=== PATIENT | female | born 1985 | race Caucasian/White ===

== ENCOUNTER → 2016-11-22 | Outpatient (CLI) | payer OTHER | END | disposition home or self-care (01) | LOC: EDBD → LABWHC1 16:26 | PROVIDERS: ATTEND Family Medicine | DX: E03.9 Hypothyroidism, unspecified (principal) | CPT/HCPCS: 36415; 84439; 84443 ==

== ENCOUNTER → 2016-12-13 | Outpatient (CLI) | payer BC, OTHER ==
--- NOTE | 2016-12-13 08:51 | US ---
EXAMINATION TYPE: US pelvic complete DATE OF EXAM: 12/13/2016 7:22 AM COMPARISON: 08/24/2014 CLINICAL HISTORY: 31-year-old female premenopausal, metrorrhagia N92.4 irregular menses, ablation in 2012 TECHNIQUE: Transabdominal (TA) sonographic images of the pelvis were obtained. FINDINGS: Uterus: Anteverted measuring 9.2 x 5.8 x 4.5 cm. Myometrium appears slightly heterogeneous. Endometrial Stripe: 0.3 cm, uniform and thin. No abnormal fluid collection seen along the uterine cav ity. Right Ovary: 3.7 x 2.3 x 1.9 cm for a volume of 8.5 mL. Left Ovary: 4.1 x 2.6 x 2.5 cm for a volume of 14.0 mL. There is trace cul-de-sac free fluid. No evidence of adnexal abnormality. IMPRESSION: 1. No sonographic evidence for hematometra on transabdominal scanning. Endometrial stripe measures 3 mm. 2. Trace cul-de-sac free fluid likely physiologic.
== END | disposition home or self-care (01) ==
LOC: EDBD → RADUSMAIN 06:58
PROVIDERS: ATTEND Obstetrics & Gynecology
DX: N92.4 Excessive bleeding in the premenopausal period (principal)
CPT/HCPCS: 76856

== ENCOUNTER 2016-12-29 13:32 | Emergency (ER) | payer BC, OTHER ==
[2016-12-29] MEDS ORDERED: RX INFO: IV CONTRAST WAS GIVEN 1 EACH MISC MISCELLANE PRN (13:52)
[2016-12-29] MEDS ORDERED: SODIUM CHLORIDE 0.9% 1,000 ML IV STA ×2 (13:52)
[2016-12-29] MEDS ORDERED: PANTOPRAZOLE 40 MG/10 ML VIAL IVP STA (13:52)
--- NOTE | 2016-12-29 14:02 | ED ---
Abdominal Pain HPI - General Chief Complaint: Abdominal Pain Stated Complaint: Abd Pain Time Seen by Provider: 12/29/16 13:44 Source: patient Mode of arrival: ambulatory Limitations: no limitations - History of Present Illness Initial Comments: This 31-year-old white female presents with a complaint of some abdominal pain. She relates that she had a Isaias fundoplication 2 years ago and was doing well for the following year. Approximately one year ago her symptoms started. She has had primarily midepigastric abdominal pain, fatigue, fainting episodes, and diarrhea for this past year. Her doctor apparently diagnosed her with dumping syndrome one year ago. She relates that her symptoms have been worse over the past one month particularly worse over the past one week. She states that she belches frequently and gets a foamy sensation in her throat. She also was diagnosed with gastroenteritis 1 week ago. She states that her stomach bulges out when she has the pain. It is much worse with any food intake and states that she has lost approximately 10 pounds in the past 2 weeks. She has an appointment to follow-up with Dr. West from gastroenterology on 01/15/2017. She's had previous cholecystectomy and appendectomy in Isaias fundoplication surgeries on her abdomen. She denies any other complaints or modifying factors. She denies any fevers or chills. No nausea vomiting. She does relate some urinary frequency over the last 1 day. - Related Data Home Medications Medication Instructions Recorded Confirmed Levothyroxine Sodium [Synthroid] 175 mcg PO DAILY 12/29/16 12/29/16 Multivitamins, Thera [Multivitamin] 1 tab PO DAILY 12/29/16 12/29/16 rOPINIRole HCL [Requip] 1 mg PO HS 12/29/16 12/29/16 Previous Rx's Medication Instructions Recorded Acetaminophen-Codeine 300-30mg 1 tab PO Q6H PRN #30 tablet 12/29/16 [Tylenol w/codeine #3] Ciprofloxacin HCl [Cipro] 500 mg PO Q12HR #20 tablet 12/29/16 Fluconazole [Diflucan] 150 mg PO ONCE #2 tab 12/29/16 metroNIDAZOLE [Flagyl] 500 mg PO BID #20 tab 12/29/16 Allergies Allergy/AdvReac Type Severity Reaction Status Date / Time hydrocodone bitartrate Allergy Anaphylaxis Verified 02/24/17 14:24 [From Vicodin] Review of Systems ROS Statement: Those systems with pertinent positive or pertinent negative responses have been documented in the HPI. ROS Other: All systems not noted in ROS Statement are negative. Past Medical History Past Medical History: GERD/Reflux, Pneumonia, Thyroid Disorder Additional Past Medical History / Comment(s): SEVERE REFLUX, AFTER LAP JOHN 2014. HYPOGLYCEMIC. SCOLIOSIS. PNEUMONIA 01/2015. BLOATING, DIARRHEA, EXCESS GAS W/ FOOD INTAKE FOR 8 MO EST. History of Any Multi-Drug Resistant Organisms: MRSA Date of last positivie culture/infection: 08/2015 MDRO Source:: BOILS ON SKIN Past Surgical History: Appendectomy, Section, Cholecystectomy, Tonsillectomy, Tubal Ligation, Uterine Ablation Additional Past Surgical History / Comment(s): COLONOSCOPY. LAP JOHN FUNDOPLASTY 02/2015. D & C Past Anesthesia/Blood Transfusion Reactions: No Reported Reaction Past Psychological History: No Psychological Hx Reported Smoking Status: Former smoker Past Alcohol Use History: Rare Additional Past Alcohol Use History / Comment(s): SMOKED 15 YRS, 1/2 PPD UNTIL . Past Drug Use History: None Reported - Past Family History Sister(s) Family Medical History: Cancer General Exam - General Exam Comments Initial Comments: GENERAL: The patient is well nourished and well hydrated. VITAL SIGNS: Heart rate, blood pressure, respiratory rate reviewed as recorded in nurse's notes. EYES: Pupils are round and reactive. Extraocular movements are intact. No conjunctival / lid redness or swelling. ENT: No external evidence of injury, swelling, or ecchymosis. Airway is patent. Throat is clear. NECK: Nontender. No swelling or evidence of injury. No subcutaneous emphysema. Trachea is midline. No thyroid mass. HEART: Regular rate and rhythm. Good peripheral pulses. LUNGS/CHEST: Breath sounds clear and equal bilaterally. No rales, rhonchi, or wheezes. No ecchymosis, subcutaneous emphysema, or tenderness. ABDOMEN: There is some mild tenderness present in the midepigastric region and right upper quadrant. No palpable masses or organomegaly. No peritoneal signs. No abdominal wall swelling or ecchymosis. EXTREMITIES: No extremity tenderness. Normal muscle tone and function. No thoracolumbar tenderness. NEUROLOGIC: Sensation is grossly intact. Cranial nerve exam reveals face is symmetrical, tongue is midline, speech is clear. SKIN: No abrasions or ecchymosis is noted. No induration or masses noted. PSYCHIATRIC: Alert and oriented. Appropriate behavior and judgment. Limitations: no limitations Course Vital Signs 12/29/16 12/29/16 12/29/16 13:34 14:18 15:22 Temperature 98.0 F 99.1 F Pulse Rate 108 H 82 81 Respiratory 20 16 16 Rate Blood Pressure 131/74 123/73 118/66 O2 Sat by Pulse 99 96 99 Oximetry Medical Decision Making - Medical Decision Making The patient was seen and examined. All diagnostics were reviewed. She refuses any pain medications. She is hydrated. The laboratory came back fairly unremarkable but the urine does show evidence of urinary tract infection. The computed tomography scan of the abdomen and pelvis does show evidence of some moderate pancolitis. There is also a hyperdense liver lesions. She is informed of these findings. It is felt as though her symptoms are likely due to the pancolitis. It is also felt that she likely need follow-up with GI and probable endoscopy. She is informed that she would need follow-up in regard to further imaging in regard to the liver lesions but this would be best done through GI as well. She was offered admission to the hospital but refuses and would like to try outpatient treatment. Overall she appears stable for outpatient trial. The possibility of the colitis being related to a infectious etiology certainly is possible. Due to the long-standing nature the possibility of an inflammatory colitis certainly is very likely as well. Return parameters are discussed in detail. She will be treated for the urinary tract infection as well. She leaves in no identifiable distress. - Lab Data Result diagrams: 12/29/16 14:15 12/29/16 14:15 Lab Results 12/29/16 12/29/16 12/29/16 Range/Units 14:15 14:15 14:15 WBC 9.0 (3.8-10.6) k/uL RBC 4.67 (3.80-5.40) m/uL Hgb 15.3 (11.4-16.0) gm/dL Hct 45.0 (34.0-46.0) % MCV 96.3 (80.0-100.0) fL MCH 32.8 (25.0-35.0) pg MCHC 34.1 (31.0-37.0) g/dL RDW 12.1 (11.5-15.5) % Plt Count 277 (150-450) k/uL Neutrophils % 63 % Lymphocytes % 26 % Monocytes % 6 % Eosinophils % 2 % Basophils % 1 % Neutrophils # 5.7 (1.3-7.7) k/uL Lymphocytes # 2.3 (1.0-4.8) k/uL Monocytes # 0.5 (0-1.0) k/uL Eosinophils # 0.2 (0-0.7) k/uL Basophils # 0.1 (0-0.2) k/uL PT 11.4 (9.0-12.0) sec INR 1.1 (<1.1) APTT 25.3 (22.0-30.0) sec Sodium 142 (137-145) mmol/L Potassium 4.2 (3.5-5.1) mmol/L Chloride 106 (98-107) mmol/L Carbon Dioxide 24 (22-30) mmol/L Anion Gap 12 mmol/L BUN 7 (7-17) mg/dL Creatinine 0.77 (0.52-1.04) mg/dL Est GFR (MDRD) Af Amer >60 (>60 ml/min/1.73 sqM) Est GFR (MDRD) Non-Af >60 (>60 ml/min/1.73 sqM) Glucose 92 (74-99) mg/dL Calcium 8.9 (8.4-10.2) mg/dL Total Bilirubin 0.7 (0.2-1.3) mg/dL AST 19 (14-36) U/L ALT 25 (9-52) U/L Alkaline Phosphatase 60 (38-126) U/L Total Protein 6.8 (6.3-8.2) g/dL Albumin 4.1 (3.5-5.0) g/dL Amylase 41 (30-110) U/L Lipase 48 (23-300) U/L Urine Color Urine Appearance (Clear) Urine pH (5.0-8.0) Ur Specific [place] (1.001-1.035) Urine Protein (Negative) Urine Glucose (UA) (Negative) Urine Ketones (Negative) Urine Blood (Negative) Urine Nitrate (Negative) Urine Bilirubin (Negative) Urine Urobilinogen (<2.0) mg/dL Ur Leukocyte Esterase (Negative) Urine RBC (0-5) /hpf Urine WBC (0-5) /hpf Ur Squamous Epith Cells (0-4) /hpf Urine Bacteria (None) /hpf Urine Mucus (None) /hpf Urine HCG, Qual (Not Detectd) 12/29/16 12/29/16 Range/Units 14:15 14:15 WBC (3.8-10.6) k/uL RBC (3.80-5.40) m/uL Hgb (11.4-16.0) gm/dL Hct (34.0-46.0) % MCV (80.0-100.0) fL MCH (25.0-35.0) pg MCHC (31.0-37.0) g/dL RDW (11.5-15.5) % Plt Count (150-450) k/uL Neutrophils % % Lymphocytes % % Monocytes % % Eosinophils % % Basophils % % Neutrophils # (1.3-7.7) k/uL Lymphocytes # (1.0-4.8) k/uL Monocytes # (0-1.0) k/uL Eosinophils # (0-0.7) k/uL Basophils # (0-0.2) k/uL PT (9.0-12.0) sec INR (<1.1) APTT (22.0-30.0) sec Sodium (137-145) mmol/L Potassium (3.5-5.1) mmol/L Chloride (98-107) mmol/L Carbon Dioxide (22-30) mmol/L Anion Gap mmol/L BUN (7-17) mg/dL Creatinine (0.52-1.04) mg/dL Est GFR (MDRD) Af Amer (>60 ml/min/1.73 sqM) Est GFR (MDRD) Non-Af (>60 ml/min/1.73 sqM) Glucose (74-99) mg/dL Calcium (8.4-10.2) mg/dL Total Bilirubin (0.2-1.3) mg/dL AST (14-36) U/L ALT (9-52) U/L Alkaline Phosphatase (38-126) U/L Total Protein (6.3-8.2) g/dL Albumin (3.5-5.0) g/dL Amylase (30-110) U/L Lipase (23-300) U/L Urine Color Yellow Urine Appearance Cloudy H (Clear) Urine pH 6.5 (5.0-8.0) Ur Specific [place] 1.021 (1.001-1.035) Urine Protein Negative (Negative) Urine Glucose (UA) Negative (Negative) Urine Ketones Negative (Negative) Urine Blood Small H (Negative) Urine Nitrate Negative (Negative) Urine Bilirubin Negative (Negative) Urine Urobilinogen <2.0 (<2.0) mg/dL Ur Leukocyte Esterase Moderate H (Negative) Urine RBC 2 (0-5) /hpf Urine WBC 45 H (0-5) /hpf Ur Squamous Epith Cells 12 H (0-4) /hpf Urine Bacteria Occasional H (None) /hpf Urine Mucus Occasional H (None) /hpf Urine HCG, Qual Not Detected (Not Detectd) Disposition Clinical Impression: Pancolitis, Abdominal pain, Diarrhea, Liver lesion, UTI (urinary tract infection) Disposition: HOME SELF-CARE Condition: Good Instructions: Abdominal Pain (ED), Colitis (ED), Urinary Tract Infection in Women (ED), Acute Diarrhea (ED) Prescriptions: Acetaminophen-Codeine 300-30mg [Tylenol w/codeine #3] 1 tab PO Q6H PRN #30 tablet PRN Reason: Pain Ciprofloxacin HCl [Cipro] 500 mg PO Q12HR #20 tablet Fluconazole [Diflucan] 150 mg PO ONCE #2 tab metroNIDAZOLE [Flagyl] 500 mg PO BID #20 tab Referrals: Ricky Vega MD [Primary Care Provider] - 01/01/17 Mary Lai MD [STAFF PHYSICIAN] - 01/01/17 Time of Disposition: 15:30
[2016-12-29 14:46] LABS: Basophils # (A) 0.1 k/uL (0-0.2); Basophils % (A) 1 %; CH 32.8; CHCM 34.2; Eosinophils # (A) 0.2 k/uL (0-0.7); Eosinophils % (A) 2 %; HDW 2.44; HGB 15.3 gm/dL (11.4-16.0); Luc # (Auto) 0.15; Luc % (Auto) 2; Lymphocytes # (A) 2.3 k/uL (1.0-4.8); Lymphocytes % (A) 26 %; MCH 32.8 pg (25.0-35.0); MCHC 34.1 g/dL (31.0-37.0); MCV 96.3 fL (80.0-100.0); Mean Platelet Volume 7.7; Monocytes # (A) 0.5 k/uL (0-1.0); Monocytes % (A) 6 %; Neutrophils # (A) 5.7 k/uL (1.3-7.7); Neutrophils % (A) 63 %; RBC 4.67 m/uL (3.80-5.40); RDW 12.1 % (11.5-15.5); WBC (Perox) 8.54
[2016-12-29 14:56] LABS: Amylase 41 U/L (30-110); Anion Gap 12 mmol/L; Calcium 8.9 mg/dL (8.4-10.2); Carbon Dioxide 24 mmol/L (22-30); Chloride 106 mmol/L (98-107); Glucose 92 mg/dL (74-99); Non-African American GFR(MDRD) >60 (>60 ml/min/1.73 sqM); Sodium 142 mmol/L (137-145); Total Bilirubin 0.7 mg/dL (0.2-1.3); Total Protein 6.8 g/dL (6.3-8.2)
[2016-12-29 14:58] LABS: ALT 25 U/L (9-52); AST 19 U/L (14-36); Alkaline Phosphatase 60 U/L (38-126); Blood Urea Nitrogen 7 mg/dL (7-17); Potassium 4.2 mmol/L (3.5-5.1)
--- NOTE | 2016-12-29 15:10 | CT ---
EXAMINATION TYPE: CT abdomen pelvis w con DATE OF EXAM: 12/29/2016 2:58 PM COMPARISON: 01/18/2015 HISTORY: 31-year-old female states of abdominal distention, pain and diarrhea. TECHNIQUE: Contiguous axial scanning of the abdomen and pelvis following administration of 100 ml Omn ipaque 300 IV contrast. Delayed images through the kidneys and coronal/sagittal reconstructions perf ormed. CT DLP: 755.8 mGycm Automated exposure control for dose reduction was used. FINDINGS: Heart is normal size without pericardial effusion. Some dependent atelectasis at the right greater th an left lung bases. No pleural effusion. There appears to be interval improvement in the patient's previously seen hepatic steatosis. However, there is now a 1.6 cm hypodense lesion seen within the right liver lobe anteriorly and a smaller 6 m m hypodense lesion posteriorly in the right liver lobe, axial images 21 and 15, respectively. The lar nissa lesion does not show clear change in density on the delayed kidney images. No biliary ductal dilatation. Portal venous system is patent. Cholecystectomy clips are present. Adrenal glands, kidneys, spleen, and pancreas appear within normal limits. Post surgical changes at the GE junction likely related to Frank fundoplication. No dilated small bowel, free fluid, or free air. There is pancolonic wall thickening more greatly affecting the ascending colon, coronal image 39 in t he proximal to mid sigmoid colon, coronal image 40 and 46. There is suggestion of layering, loose stool within the colon and some hyperemia of the vasa recta, c oronal image 40 on the right. Scattered small mesenteric lymph nodes are noted. No enlarged mesenteric or retroperitoneal lymphaden opathy. Bladder is nondistended. Uterus and both ovaries are visualized. No abnormal fluid collection in the pelvis or pelvic lymphadenopathy seen. Bones: No osseous destructive process. IMPRESSION: 1. MODERATE PANCOLITIS, WITH GREATER INVOLVEMENT OF THE RIGHT HEMICOLON AND PROXIMAL TO MID SIGMOID C OLON. CLINICALLY CORRELATE TO ETIOLOGY. INFECTIOUS COLITIS AND INFLAMMATORY BOWEL DISEASE ARE IN T HE DIFFERENTIAL. 2. A COUPLE HYPODENSE LESIONS IN THE RIGHT LIVER LOBE MEASURE UP TO 1.6 CM. THESE WERE NOT CLEARLY SE EN ON 01/18/2015. CONSIDER 3 - 6 MONTH FOLLOW-UP LIVER MRI TO REASSESS. COMPLICATED CYSTS AND SCLEROSE D HEMANGIOMAS ARE SOME OF THE BENIGN CONSIDERATIONS.
[2016-12-29 15:15] LABS: INR 1.1 (<1.1); Partial Thromboplastin Time 25.3 sec (22.0-30.0); Prothrombin Time 11.4 sec (9.0-12.0)
[2016-12-29 15:17] LABS: Appearance,Urine Cloudy (Clear); Bacteria,Urine Occasional /hpf; Bilirubin,Urine Negative (Negative); Glucose,Urine (UA) Negative (Negative); Ketones,Urine Negative (Negative); Leukocyte Esterase,Urine Moderate (Negative); Mucus,Urine Occasional /hpf; Nitrite,Urine Negative (Negative); PH, Urine 6.5 (5.0-8.0); Particle Count 8491; Protein,Urine Negative (Negative); RBC,Urine 2 /hpf (0-5); Specific Gravity,Urine 1.021 (1.001-1.035); Squamous Epithelial Cell,Urine 12 /hpf (0-4); UA Billing (MACRO vs. MICRO) MICRO; Urobilinogen,Urine <2.0 mg/dL (<2.0); WBC,Urine 45 /hpf (0-5)
[2016-12-29 15:45] VITALS: BP 120/75; PULSE 78; RESP 18; TEMP 98.2
== END 2016-12-29 15:45 | disposition home or self-care (01) ==
LOC: EDBD → EC 13:32
DX: K51.00 Ulcerative (chronic) pancolitis without complications (principal); N39.0 Urinary tract infection, site not specified; K76.9 Liver disease, unspecified; K52.9 Noninfective gastroenteritis and colitis, unspecified; E07.9 Disorder of thyroid, unspecified; Z87.891 Personal history of nicotine dependence; Z79.52 Long term (current) use of systemic steroids; Z79.899 Other long term (current) drug therapy; Z88.5 Allergy status to narcotic agent
CPT/HCPCS: 36415; 80053; 82150; 83690; 85025; 85610; 85730; 81001; 81025; 74177; 99284; 96374; 96361; Q9967; C9113

== ENCOUNTER → 2017-01-22 | Outpatient (CLI) | payer BC, OTHER ==
[2017-01-23 14:19] LABS: Gliadin AB IgA, Deaminated 10 UNITS (<20); Gliadin AB IgG, Deaminated 2 UNITS (<20)
== END | disposition home or self-care (01) ==
LOC: EDBD 16:26 → LABWHC1 16:26
PROVIDERS: ATTEND Internal Medicine Gastroenterology
DX: K52.9 Noninfective gastroenteritis and colitis, unspecified (principal)
CPT/HCPCS: 36415; 83516; 85652; 86140

== ENCOUNTER → 2017-06-14 | Outpatient (CLI) | payer BC, OTHER ==
--- NOTE | 2017-06-14 11:40 | FL ---
EXAMINATION TYPE: FL small bowel follow through DATE OF EXAM: 06/14/2017 CLINICAL HISTORY: Abdominal pain and diarrhea up to 10 times per day. Significant weight loss. Histor y of Isaias surgery 2 years ago. Irritable bowel syndrome with diarrhea per order. TECHNIQUE: A single contrast small bowel follow through is performed utilizing barium. A total of 1.05 minutes of fluoroscopic time was utilized during procedure. COMPARISON: CT abdomen and pelvis December 29, 2016 FINDINGS: Cardiopulmonary Technologist image of the abdomen shows no gross abnormality. Cholecystectomy clips are redemonst rated. The small bowel study shows transit to the colon in less than 150 minutes. There is a normal mucosal fold pattern throughout the small bowel. There is no evidence of any stricture or filling defect no jose. The terminal ileum is not well identified but felt within normal limits. IMPRESSION: Small bowel follow-through felt within normal limits.
== END | disposition home or self-care (01) ==
LOC: EDBD 08:00 → RADFLMAIN 08:05
PROVIDERS: ATTEND Internal Medicine Gastroenterology
DX: K58.0 Irritable bowel syndrome with diarrhea (principal)
CPT/HCPCS: 74250

== ENCOUNTER 2018-01-28 08:13 | Inpatient (IN) | payer BC, OTHER ==
[2018-01-28 08:59] VITALS: BMI 28.4
[2018-01-28 10:00] LABS: Glucose,Whole Blood 88 mg/dL (75-99)
[2018-01-28 11:01] LABS: Glucose,Whole Blood 74 mg/dL (75-99)
[2018-01-28 11:59] LABS: Glucose,Whole Blood 76 mg/dL (75-99)
[2018-01-28 12:59] LABS: Glucose,Whole Blood 80 mg/dL (75-99)
[2018-01-28] MEDS: CHOLECALCIFEROL 1,000 UNIT TAB PO SCH (13:01)
[2018-01-28] MEDS: ACETAMINOPHEN TAB 325 MG TAB PO PRN ×2 (13:11→19:33)
[2018-01-28 14:41] LABS: Glucose,Whole Blood 77 mg/dL (75-99)
[2018-01-28 15:00] LABS: Glucose,Whole Blood 83 mg/dL (75-99)
--- NOTE | 2018-01-28 15:12 | P.HPIM ---
History of Present Illness H&P Date: 01/28/18 32-year-old female who was directly admitted to [facility] from Dr. Gordon's office for a [address] Vega is her primary care physician. The patient states she underwent laparoscopic John fundoplication by Dr. Mary in 2014 for severe gastroesophageal reflux disease. She states since that time she has had difficulties with hypoglycemia. The patient states she did have hypoglycemic episodes prior to this surgery but they have intensified significantly since that time and they are affecting her daily life. The patient states that she no longer follows up with Dr. Mary and states that he refuses to see her at his office. The patient states that she was following with Dr. Lai for further evaluation of her dumping syndrome and was told she had celiac disease. However, patient states she was tested for celiac disease and it was negative. She states that she did not continue to see Dr. Lai and began seeing a motor scooter mechanic out of [facility] in [place]. The patient states it is "Dr. Preciado". She states that she underwent an upper and lower endoscopy in August 2017 and was told she had erosive gastritis and mild inflammation of the duodenum. She states she was prescribed Nexium at that time. Patient reports she was referred to Dr. Gordon about a month ago and is currently undergoing work up regarding her hypoglycemia. The patient states she was checking her blood sugars at home but her machine recently broke. She states she has hypoglycemic episodes "all the time". She reports that she passes out from hypoglycemia approximately every other day. The patient is admitted to the hospital for a 72 hour glucose test to rule out insulinoma per Dr. Gordon. Review of Systems GENERAL: Patient denies fever. Denies chills. EYES: Denies blurred vision. Denies vision changes. Denies eye pain. EARS, NOSE, MOUTH, & THROAT: Denies headache. Denies sore throat. Denies ear pain. RESPIRATORY: Denies cough. Denies shortness of breath. Denies sputum production. Denies hemoptysis. CARDIOVASCULAR: Denies chest pain or pressure. Denies palpitations. Denies arrhythmias. GASTROINTESTINAL: Positive for GERD. Positive for episodes of diarrhea and "dumping syndrome". Denies abdominal pain. Denies nausea. Denies vomiting. Denies blood in the stool. GENITOURINARY: Denies urinary frequency. Denies burning. Denies dysuria. Denies cloudy urine. Denies blood in the urine. MUSCULOSKELETAL: Denies myalgias. Denies joint swelling. Denies decreased range of motion beyond patients baseline. INTEGUMENTARY: Denies pruitis. Denies rash. PSYCHIATRIC: Denies suicidal or homicial ideations. ENDOCRINE: Positive for hypoglycemia. Denies weight change. Denies polydipsia. Denies polyuria. HEMATOLOGIC: Denies bleeding disorders. Past Medical History Past Medical History: Asthma, GERD/Reflux, Pneumonia, Thyroid Disorder Additional Past Medical History / Comment(s): SEVERE REFLUX, AFTER LAP JOHN 2014. HYPOGLYCEMIC. SCOLIOSIS. PNEUMONIA 01/2015. BLOATING, DIARRHEA, EXCESS GAS W/ FOOD INTAke. History of Any Multi-Drug Resistant Organisms: MRSA Date of last positivie culture/infection: 08/2015 MDRO Source:: BOILS ON SKIN Past Surgical History: Appendectomy, Section, Cholecystectomy, Tonsillectomy, Tubal Ligation, Uterine Ablation Additional Past Surgical History / Comment(s): COLONOSCOPY. LAP JOHN FUNDOPLASTY 02/2015. D & C Past Anesthesia/Blood Transfusion Reactions: No Reported Reaction Past Psychological History: No Psychological Hx Reported Smoking Status: Former smoker Past Alcohol Use History: Rare Additional Past Alcohol Use History / Comment(s): SMOKED 15 YRS, 1/2 PPD UNTIL . Past Drug Use History: None Reported - Past Family History Sister(s) Family Medical History: Cancer mother Family Medical History: Thyroid Disorder Medications and Allergies Home Medications Medication Instructions Recorded Confirmed Type Levothyroxine Sodium [Synthroid] 175 mcg PO DAILY 12/29/16 01/28/18 History rOPINIRole HCL [Requip] 1 mg PO HS 12/29/16 01/28/18 History Cholecalciferol [Vitamin D3] 5,000 unit PO AC-LUNCH 01/28/18 01/28/18 History Esomeprazole Magnesium [NexIUM 20 mg PO DAILY 01/28/18 01/28/18 History 24Hr] Allergies Allergy/AdvReac Type Severity Reaction Status Date / Time hydrocodone bitartrate Allergy Anaphylaxis Verified 01/28/18 10:26 [From Vicodin] Physical Exam Vitals: Vital Signs Temp Pulse Resp BP Pulse Ox 01/28/18 14:39 98 F 58 L 16 110/61 99 01/28/18 10:30 98.1 F 65 16 138/78 99 Intake and Output 01/27/18 01/28/18 01/28/18 22:59 06:59 14:59 Other: # Voids 1 Weight 84.822 kg GENERAL: This is a 32-year-old female in no apparent distress at the time of examination. Pleasant and cooperative. HEENT: Head is atraumatic, normocephalic. Pupils are equal, round, and reactive to light. Sclerae anicteric. Conjunctivae are clear. Mucus membranes of the mouth are moist. Neck is supple. RESPIRATORY: Clear to ausculation. No wheezes, rales, or rhonchi. No use of accessory muscles. Patient maintaining oxygen saturation greater than 92%. No chest wall tenderness is noted on palpation or with deep breathing. CARDIOVASCULAR: Regular rate and rhythm. S1 and S2 noted. No systolic or diastolic murmur auscultated. No JVD noted. No S3 or S4 noted. GASTROINTESTINAL: No distention noted. Abdomen soft and round. Normal active bowel sounds auscultated x 4 quadrants. No pain or tenderness noted upon palpation. INTEGUMENTARY: No cyanosis. No jaundice. No rashes noted. No cellulitis noted. EXTREMITIES: 2+ peripheral pulses. No evidence of peripheral edema. No calf tenderness noted. NEUROLOGIC: Cranial nerves II-XII intact. PSYCHIATRIC: Awake, alert, and oriented X 3. Appropriate affect. Intact judgement and insight. Results Labs: Abnormal Lab Results - Last 24 Hours (Table) 01/28/18 Range/Units 10:59 POC Glucose (mg/dL) 74 L (75-99) mg/dL Thrombosis Risk Factor Assmnt - Choose All That Apply Any of the Below Risk Factors Present?: No Assessment and Plan Plan: ASSESSMENT: Multiple episodes of hypoglycemia, rule out insulinoma Gastroesophageal reflux disease, s/p John fundoplication 2014 History of erosive gastritis and mild inflammation of the duodenum per patient, s/p EGD and colonoscopy August 2017 Hypothyroidism History of nicotine dependence, in remission, patient quit smoking cigarettes in 2014 PLAN: Patient directly admitted from Dr. Gordon's office for 72 hour glucose test Patient to have her blood glucose checked Q1 hour until level falls below 55. At that time, patient is to have blood drawn as ordered by Dr. Gordon and then is to have her blood glucose treated Patient may be discharged after that per Dr. Gordon's orders Nurse practitioner note has been reviewed by physician. Signing provider agrees with the documented findings, assessment, and plan of care.
[2018-01-28 16:00] LABS: Glucose,Whole Blood 79 mg/dL (75-99)
[2018-01-28 17:14] LABS: Glucose,Whole Blood 78 mg/dL (75-99)
[2018-01-28 18:14] LABS: Glucose,Whole Blood 82 mg/dL (75-99)
[2018-01-28 19:09] LABS: Glucose,Whole Blood 79 mg/dL (75-99)
[2018-01-28 20:28] LABS: Glucose,Whole Blood 88 mg/dL (75-99)
[2018-01-28 21:24] LABS: Glucose,Whole Blood 95 mg/dL (75-99)
[2018-01-28 22:52] LABS: Glucose,Whole Blood 90 mg/dL (75-99)
[2018-01-28] MEDS ORDERED: ONDANSETRON 4 MG/2 ML VIAL IVP PRN (23:37)
[2018-01-28] MEDS: SODIUM CHLORIDE 0.9% 1,000 ML IV SCH (23:42)
[2018-01-29 01:16] LABS: Glucose,Whole Blood 83 mg/dL (75-99)
[2018-01-29 02:19] LABS: Glucose,Whole Blood 78 mg/dL (75-99)
[2018-01-29 03:34] LABS: Glucose,Whole Blood 75 mg/dL (75-99)
[2018-01-29 04:31] LABS: Glucose,Whole Blood 86 mg/dL (75-99)
[2018-01-29] MEDS: LEVOTHYROXINE 100 MCG TAB PO SCH (05:53)
[2018-01-29] MEDS: LEVOTHYROXINE 75 MCG TAB PO SCH (05:53)
[2018-01-29 06:12] LABS: Glucose,Whole Blood 77 mg/dL (75-99)
[2018-01-29 07:28] LABS: Glucose,Whole Blood 76 mg/dL (75-99)
[2018-01-29] MEDS: PANTOPRAZOLE 40 MG TABLET PO SCH (07:35)
[2018-01-29 08:20] LABS: Glucose,Whole Blood 73 mg/dL (75-99)
--- NOTE | 2018-01-29 08:48 | P.PN ---
Subjective Progress Note Date: 01/29/18 32-year-old female who was directly admitted to [facility] from Dr. Gordon's office for a [address] Vega is her primary care physician. The patient states she underwent laparoscopic Frank fundoplication by Dr. Mary in 2014 for severe gastroesophageal reflux disease. She states since that time she has had difficulties with hypoglycemia. The patient states she did have hypoglycemic episodes prior to this surgery but they have intensified significantly since that time and they are affecting her daily life. The patient states that she no longer follows up with Dr. Mary and states that he refuses to see her at his office. The patient states that she was following with Dr. Lai for further evaluation of her dumping syndrome and was told she had celiac disease. However, patient states she was tested for celiac disease and it was negative. She states that she did not continue to see Dr. Lai and began seeing a spanish instructor out of [facility] in [place]. The patient states it is "Dr. Preciado". She states that she underwent an upper and lower endoscopy in August 2017 and was told she had erosive gastritis and mild inflammation of the duodenum. She states she was prescribed Nexium at that time. Patient reports she was referred to Dr. Gordon about a month ago and is currently undergoing work up regarding her hypoglycemia. The patient states she was checking her blood sugars at home but her machine recently broke. She states she has hypoglycemic episodes "all the time". She reports that she passes out from hypoglycemia approximately every other day. The patient is admitted to the hospital for a 72 hour glucose test to rule out insulinoma per Dr. Gordon. 01/29/2018 Patient seen and examined at the bedside on rounds with Dr. Vega. Patient is awake and alert. Undergoing 72 hour glucose test. Patients blood sugars are ranging from 73-95. Patient states she did have an episode of nausea last night but currently denies any nausea or vomiting. Denies shortness of breath. Denies chest pain or pressure. Denies pain or discomfort. Patient is on room air with oxygen saturations greater than 92%. Blood pressure remains stable. She is afebrile. Objective - Vital Signs Vital signs: Vital Signs Temp 98.3 F 01/28/18 23:00 Pulse 82 01/28/18 23:00 Resp 16 01/28/18 23:00 BP 102/52 01/28/18 23:00 Pulse Ox 95 01/28/18 23:00 Intake & Output 01/28/18 01/29/18 01/29/18 18:59 06:59 18:59 Intake Total 590 Balance 590 Weight 84.822 kg 84.822 kg Intake: Intake, IV Titration 590 Amount Sodium Chloride 0.9% 1, 590 000 ml @ 70 mls/hr IV . [id number] [facility] Rx#:[id number] Other: Voiding Method Toilet Toilet # Voids 1 2 - Exam GENERAL: This is a 32-year-old female in no apparent distress at the time of examination. Pleasant and cooperative. HEENT: Head is atraumatic, normocephalic. Pupils are equal, round, and reactive to light. Sclerae anicteric. Conjunctivae are clear. Mucus membranes of the mouth are moist. Neck is supple. RESPIRATORY: Clear to ausculation. No wheezes, rales, or rhonchi. No use of accessory muscles. Patient maintaining oxygen saturation greater than 92%. No chest wall tenderness is noted on palpation or with deep breathing. CARDIOVASCULAR: Regular rate and rhythm. S1 and S2 noted. No systolic or diastolic murmur auscultated. No JVD noted. No S3 or S4 noted. GASTROINTESTINAL: No distention noted. Abdomen soft and round. Normal active bowel sounds auscultated x 4 quadrants. No pain or tenderness noted upon palpation. INTEGUMENTARY: No cyanosis. No jaundice. No rashes noted. No cellulitis noted. EXTREMITIES: 2+ peripheral pulses. No evidence of peripheral edema. No calf tenderness noted. NEUROLOGIC: Cranial nerves II-XII intact. PSYCHIATRIC: Awake, alert, and oriented X 3. Appropriate affect. Intact judgement and insight. - Labs Labs: Abnormal Lab Results - Last 24 Hours (Table) 01/28/18 01/29/18 Range/Units 10:59 08:18 POC Glucose (mg/dL) 74 L 73 L (75-99) mg/dL Assessment and Plan Plan: ASSESSMENT: Multiple episodes of hypoglycemia, rule out insulinoma Gastroesophageal reflux disease, s/p Frank fundoplication 2014 History of erosive gastritis and mild inflammation of the duodenum per patient, s/p EGD and colonoscopy August 2017 Hypothyroidism History of nicotine dependence, in remission, patient quit smoking cigarettes in 2014 PLAN: Patient directly admitted from Dr. Gordon's office for 72 hour glucose test Patient to have her blood glucose checked Q1 hour until level falls below 55. At that time, patient is to have blood drawn as ordered by Dr. Gordon and then is to have her blood glucose treated Patient may be discharged after that per Dr. Gordon's orders Nurse practitioner note has been reviewed by physician. Signing provider agrees with the documented findings, assessment, and plan of care.
[2018-01-29 09:17] LABS: Glucose,Whole Blood 73 mg/dL (75-99)
[2018-01-29 10:15] LABS: Glucose,Whole Blood 68 mg/dL (75-99)
[2018-01-29 11:20] LABS: Glucose,Whole Blood 73 mg/dL (75-99)
[2018-01-29 12:05] LABS: Glucose,Whole Blood 69 mg/dL (75-99)
[2018-01-29 13:09] LABS: Glucose,Whole Blood 70 mg/dL (75-99)
[2018-01-29 14:03] LABS: Glucose,Whole Blood 65 mg/dL (75-99)
[2018-01-29 14:55] LABS: Glucose,Whole Blood 71 mg/dL (75-99)
[2018-01-29 16:03] LABS: Glucose,Whole Blood 63 mg/dL (75-99)
[2018-01-29 16:58] LABS: Glucose,Whole Blood 61 mg/dL (75-99)
[2018-01-29 17:33] LABS: Glucose,Whole Blood 63 mg/dL (75-99)
[2018-01-29 18:03] LABS: Glucose,Whole Blood 66 mg/dL (75-99)
[2018-01-29] MEDS: CHOLECALCIFEROL 1,000 UNIT TAB PO SCH (18:20)
[2018-01-29 18:57] LABS: Glucose,Whole Blood 63 mg/dL (75-99)
[2018-01-29 19:56] LABS: Glucose,Whole Blood 59 mg/dL (75-99)
[2018-01-29 21:01] LABS: Glucose,Whole Blood 57 mg/dL (75-99)
[2018-01-29 21:53] LABS: Glucose,Whole Blood 62 mg/dL (75-99)
[2018-01-29 22:57] LABS: Glucose,Whole Blood 59 mg/dL (75-99)
[2018-01-29 23:59] LABS: Glucose,Whole Blood 58 mg/dL (75-99)
[2018-01-30 00:57] LABS: Glucose,Whole Blood 59 mg/dL (75-99)
[2018-01-30] MEDS: SODIUM CHLORIDE 0.9% 1,000 ML IV SCH (01:41)
[2018-01-30 02:08] LABS: Glucose,Whole Blood 61 mg/dL (75-99)
[2018-01-30 03:03] LABS: Glucose,Whole Blood 58 mg/dL (75-99)
[2018-01-30 04:03] LABS: Glucose,Whole Blood 60 mg/dL (75-99)
[2018-01-30 05:12] LABS: Glucose,Whole Blood 52 mg/dL (75-99)
[2018-01-30] MEDS: ACETAMINOPHEN TAB 325 MG TAB PO PRN (05:46)
[2018-01-30] MEDS: LEVOTHYROXINE 75 MCG TAB PO SCH (06:24)
[2018-01-30] MEDS: PANTOPRAZOLE 40 MG TABLET PO SCH (06:24)
[2018-01-30] MEDS: LEVOTHYROXINE 100 MCG TAB PO SCH (06:24)
[2018-01-30 08:43] VITALS: BP 94/58; PULSE 84; RESP 17; TEMP 98.4
--- NOTE | 2018-01-30 11:19 | P.DS ---
Providers Date of admission: 01/28/18 08:14 Expected date of discharge: 01/30/18 Attending physician: Ricky Vega Consults: 01/28/18 09:28 Consult Physician Routine Consulting Provider: Tea Gordon Consult Reason/Comments: 72 hour fast, patient known to you Do you want consulting provider notified?: Already Contacted Placement Type Exists?: Yes Primary care physician: Ricky Vega [facility] Course: 32-year-old female who was directly admitted to [facility] from Dr. Gordon's office for a [address] Vega is her primary care physician. The patient states she underwent laparoscopic Frank fundoplication by Dr. Mary in 2014 for severe gastroesophageal reflux disease. She states since that time she has had difficulties with hypoglycemia. The patient states she did have hypoglycemic episodes prior to this surgery but they have intensified significantly since that time and they are affecting her daily life. The patient states that she no longer follows up with Dr. Mary and states that he refuses to see her at his office. The patient states that she was following with Dr. Lai for further evaluation of her dumping syndrome and was told she had celiac disease. However, patient states she was tested for celiac disease and it was negative. She states that she did not continue to see Dr. Lai and began seeing a system administration advisor out of [facility] in [place]. The patient states it is "Dr. Preciado". She states that she underwent an upper and lower endoscopy in August 2017 and was told she had erosive gastritis and mild inflammation of the duodenum. She states she was prescribed Nexium at that time. Patient reports she was referred to Dr. Gordon about a month ago and is currently undergoing work up regarding her hypoglycemia. The patient states she was checking her blood sugars at home but her machine recently broke. She states she has hypoglycemic episodes "all the time". She reports that she passes out from hypoglycemia approximately every other day. The patient is admitted to the hospital for a 72 hour glucose test to rule out insulinoma per Dr. Gordon. The patient was NPO during hospitalization and her blood sugars were checked every hour. Dr. Gordon requested blood work to be obtained once the patient's blood sugar was under 55. This morning the patient's blood sugar was 52. Blood work was completed and patient's hypoglycemia was treated. The patient states she was told by Dr. Gordon to contact their office when she is discharged from the hospital for a follow-up appointment. The patient was deemed stable for discharge per Dr. Vega. She is to follow up on an outpatient basis. DISCHARGE DIAGNOSIS: Multiple episodes of hypoglycemia, rule out insulinoma, patient to follow up with Dr. Gordon Gastroesophageal reflux disease, s/p Frank fundoplication 2014 History of erosive gastritis and mild inflammation of the duodenum per patient, s/p EGD and colonoscopy August 2017 Hypothyroidism History of nicotine dependence, in remission, patient quit smoking cigarettes in 2014 Nurse practitioner note has been reviewed by physician. Signing provider agrees with the documented findings, assessment, and plan of care. Plan - Discharge Summary Discharge Rx Participant: No New Discharge Prescriptions: Continue rOPINIRole HCL [Requip] 1 mg PO HS Levothyroxine Sodium [Synthroid] 175 mcg PO DAILY Cholecalciferol [Vitamin D3] 5,000 unit PO AC-LUNCH Esomeprazole Magnesium [NexIUM 24Hr] 20 mg PO DAILY Discharge Medication List Levothyroxine Sodium [Synthroid] 175 mcg PO DAILY 12/29/16 [History] rOPINIRole HCL [Requip] 1 mg PO HS 12/29/16 [History] Cholecalciferol [Vitamin D3] 5,000 unit PO AC-LUNCH 01/28/18 [History] Esomeprazole Magnesium [NexIUM 24Hr] 20 mg PO DAILY 01/28/18 [History] Follow up Appointment(s)/Referral(s): Ricky Vega MD [Primary Care Provider] - 1 Week Tea Gordon MD [STAFF PHYSICIAN] - As Needed Patient Instructions/Handouts: Non-diabetic Hypoglycemia (DC) Activity/Diet/Wound Care/Special Instructions: Follow up as directed. Discharge Disposition: HOME SELF-CARE
== END 2018-01-30 10:33 | disposition home or self-care (01) | DRG 641 ==
LOC: 5MS5E 08:13 → INTOOBSV 08:13 → OBSVTOIN 08:14 → 6PED 01-29 12:11
PROVIDERS: ADMIT Family Medicine; ATTEND Family Medicine
DX: E16.2 Hypoglycemia, unspecified (principal); M41.9 Scoliosis, unspecified; E03.9 Hypothyroidism, unspecified; J45.909 Unspecified asthma, uncomplicated; K21.9 Gastro-esophageal reflux disease without esophagitis; D37.8 Neoplasm of uncertain behavior of other specified digestive organs; K29.60 Other gastritis without bleeding; K90.0 Celiac disease; Z87.891 Personal history of nicotine dependence; Z83.49 Family history of other endocrine, nutritional and metabolic diseases; Z79.890 Hormone replacement therapy; Z79.899 Other long term (current) drug therapy; Z79.891 Long term (current) use of opiate analgesic
CPT/HCPCS: 82010; 82947; 83525; 84206; 84681; 86337

== ENCOUNTER → 2018-07-04 | Outpatient (CLI) | payer BC, OTHER ==
--- NOTE | 2018-07-04 10:54 | CT ---
EXAMINATION TYPE: CT brain wo con DATE OF EXAM: 07/04/2018 COMPARISON: 07/14/2011 HISTORY: 32-year-old female Dystonia TECHNIQUE: Examination was done in axial plane without intravenous contrast. Coronal and sagittal r econstructions performed. CT DLP: 1073 mGycm Automated exposure control for dose reduction was used. FINDINGS: There are mild calvarial artifacts. Within this limitation, there is no evidence of acute intracrani al hemorrhage, acute ischemic changes, mass, mass-effect, or extra-axial fluid collection. There is no effacement of cerebral sulci or basal subarachnoid cisterns. There is no hydrocephalus. There is no midline shift. Espinosa-white matter distinction is preserved. Paranasal sinuses and mastoid air cells well pneumatized. Orbits and globes are intact. IMPRESSION: No acute intracranial abnormality seen.
== END | disposition home or self-care (01) ==
LOC: RADCTMAIN 09:34
PROVIDERS: ATTEND Family Medicine
DX: G24.9 Dystonia, unspecified (principal)
CPT/HCPCS: 70450

== ENCOUNTER → 2018-07-04 | Outpatient (CLI) | payer BC, OTHER ==
--- NOTE | 2018-07-04 09:42 | US ---
EXAMINATION TYPE: US thyroid st tissue head/neck DATE OF EXAM: 07/04/2018 COMPARISON: NONE CLINICAL HISTORY: E03.9 PRIMARY HYPOTHYROIDISM. Pt states Dr felt enlarged thyroid on exam GLAND SIZE: Right Lobe: 3.7 x 1.5 x 1.4 cm Overall Parenchyma: homogenous Left Lobe: 3.8 x 1.4 x 1.5 cm Overall Parenchyma: homogeneous Isthmus Thickness: 0.2 cm NODULES LEFT: # of nodules measured on left: 1. 1.3 X 1.3 x 1.2 cm isoechoic solid nodule at the mid pole with well-defined margins. This nodule is taller than wide and shows intranodular vascularity. Prior size: No prior Bilateral neck scanned, no evidence of lymphadenopathy. Single, solid nodule on right. IMPRESSION: Solid nonspecific nodule left thyroid lobe. The need to biopsy should be made on a clinical basis.
== END | disposition home or self-care (01) ==
LOC: RADUSWWP 09:07
PROVIDERS: ATTEND Internal Medicine
DX: E04.1 Nontoxic single thyroid nodule (principal); E03.9 Hypothyroidism, unspecified
CPT/HCPCS: 76536

== ENCOUNTER → 2018-08-01 | Outpatient (CLI) | payer BC, OTHER ==
--- NOTE | 2018-08-01 14:17 | MM ---
Reason for exam: screening (asymptomatic). Baseline mammogram. History: Took hormonal contraceptives beginning at age 14. Physical Findings: Nurse did not find any significant physical abnormalities on exam.. MG Screening Mammo w CAD Bilateral CC and MLO view(s) were taken. There are scattered fibroglandular densities. There is no discrete abnormality. These results were verbally communicated with the patient and result sheet given to the patient on 08/01/18. ASSESSMENT: Negative, BI-RAD 1 RECOMMENDATION: Routine screening mammogram of both breasts at age 38. (unless clinical indication to start sooner)
== END | disposition home or self-care (01) ==
LOC: RADMAMWWP 12:59
PROVIDERS: ATTEND Obstetrics & Gynecology
DX: Z12.31 Encounter for screening mammogram for malignant neoplasm of breast (principal)
CPT/HCPCS: 77067

== ENCOUNTER → 2018-09-11 | Outpatient (CLI) | payer BC, OTHER | END | disposition home or self-care (01) | LOC: LABWHC1 08:27 | PROVIDERS: ATTEND Internal Medicine | DX: K52.9 Noninfective gastroenteritis and colitis, unspecified (principal) | CPT/HCPCS: 36415; 83497; 83835; 84443 ==

== ENCOUNTER → 2019-11-26 | Outpatient (CLI) | payer BC, OTHER ==
--- NOTE | 2019-11-26 17:16 | US ---
EXAMINATION TYPE: US pelvic complete DATE OF EXAM: 11/26/2019 COMPARISON: CT & US 2017 CLINICAL HISTORY: N93.8 dysfunctional uterine bleeding. Dysfunctional uterine bleeding x 4 months, gr avida 4, para 3, miscarriage 1, history of 2 c-sections and tubal ligation. TECHNIQUE: . Transabdominal sonographic images of the pelvis were acquired. Date of LMP: Unknown EXAM MEASUREMENTS: Uterus: 9.1 x 4.5 x 4.8 cm Endometrial Stripe: 0.5 cm Right Ovary: 3.0 x 1.9 x 2.1 cm Left Ovary: 3.0 x 1.6 x 2.4 cm 1. Uterus: anteverted 2. Endometrium: wnl 3. Right Ovary: wnl 4. Left Ovary: wnl 5. Bilateral Adnexa: wnl 6. Posterior cul-de-sac: wnl IMPRESSION: No significant abnormality
== END | disposition home or self-care (01) ==
LOC: RADUSWWP 16:25
PROVIDERS: ATTEND Obstetrics & Gynecology
DX: N93.8 Other specified abnormal uterine and vaginal bleeding (principal)
CPT/HCPCS: 76856

== ENCOUNTER → 2019-12-31 | Outpatient (CLI) | payer BC, OTHER ==
[2019-12-31 17:32] LABS: Basophils # (A) 0.1 k/uL (0-0.2); Basophils % (A) 1 %; Eosinophils # (A) 0.5 k/uL (0-0.7); Eosinophils % (A) 8 %; HCT 45.5 % (34.0-46.0); HGB 14.9 gm/dL (11.4-16.0); Lymphocytes # (A) 2.3 k/uL (1.0-4.8); Lymphocytes % (A) 35 %; MCH 32.3 pg (25.0-35.0); MCHC 32.8 g/dL (31.0-37.0); MCV 98.5 fL (80.0-100.0); Mean Platelet Volume 7.7; Monocytes # (A) 0.3 k/uL (0-1.0); Monocytes % (A) 5 %; Neutrophils # (A) 3.2 k/uL (1.3-7.7); Neutrophils % (A) 50 %; Platelet Count 224 k/uL (150-450); RBC 4.62 m/uL (3.80-5.40); RDW 11.5 % (11.5-15.5); WBC 6.4 k/uL (3.8-10.6)
[2019-12-31 17:35] LABS: African American GFR (CKD) >90 (>60 ml/min/1.73 sqM); Anion Gap 8 mmol/L; Blood Urea Nitrogen 8 mg/dL (7-17); Calcium 8.8 mg/dL (8.4-10.2); Carbon Dioxide 25 mmol/L (22-30); Chloride 105 mmol/L (98-107); Glucose 83 mg/dL (74-99); Non-African American GFR(CKD) >90 (>60 ml/min/1.73 sqM); Potassium 4.1 mmol/L (3.5-5.1); Sodium 138 mmol/L (137-145)
== END | disposition home or self-care (01) ==
LOC: LABPAT 16:37
PROVIDERS: ATTEND Obstetrics & Gynecology
DX: Z01.812 Encounter for preprocedural laboratory examination (principal)
CPT/HCPCS: 36415; 80048; 85025

== ENCOUNTER 2020-01-06 06:00 | Inpatient (IN) | payer BC, OTHER ==
[2020-01-01 09:49] VITALS: BMI 32.1
--- NOTE | 2020-01-05 21:14 | P.HPOB ---
History of Present Illness H&P Date: 01/05/20 Chief Complaint: Dysfunctional uterine bleeding, pelvic pain This is a 34-year-old female 4 para 3 who presents for total abdominal hysterectomy due to dysfunctional uterine bleeding and pelvic pain. She had an endometrial ablation in 2012 but has been spotting almost constantly over the last 4 months. She initially thought it was due to her thyroid levels, however her thyroid levels have been normal and she still continues to have spotting. Sometimes the bleeding is heavy with clots and is always associated with cramping. She also all was has pelvic pain. Her pelvic ultrasound was essentially normal. She would like definitive surgical treatment to control her bleeding and pelvic pain. She would like to preserve her ovaries if at all possible. Obstetrical history: . History of 1 vaginal delivery and 2 deliveries. One miscarriage. Gynecologic history: No history of sexual transmitted diseases. She does have a history of abnormal Pap smears in the past and has had a previous LEEP procedure in 2007. Social history: She is . She has had a tubal ligation. 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 Review of Systems Constitutional: Denies chills, Denies fever Eyes: denies blurred vision, denies pain Ears, nose, mouth and throat: Denies headache, Denies sore throat Cardiovascular: Denies chest pain, Denies shortness of breath Respiratory: Denies cough Gastrointestinal: Reports abdominal pain, Reports bloating, Reports constipation, Reports heartburn, Reports nausea Genitourinary: Reports abnormal vaginal bleeding, Reports dysmenorrhea, Reports menorrhagia, Reports pelvic pain Menstruation: Reports menses 8 or > days, Reports menses variable, Reports period heavy Musculoskeletal: Reports low back pain Integumentary: Denies pruritus, Denies rash Neurological: Denies numbness, Denies weakness Psychiatric: Denies anxiety, Denies depression Past Medical History Past Medical History: Asthma, Cancer, GERD/Reflux, Pneumonia, Thyroid Disorder Additional Past Medical History / Comment(s): OCC. HYPOGLYCEMIC. SCOLIOSIS. migraines, palpitations, tachycardia, thyroid cancer, hx hiatal hernia, hx ulcer, errosive gastritis, occ severe reflux, arthritis, dumping syndrome, restless leg syndrome History of Any Multi-Drug Resistant Organisms: MRSA Date of last positivie culture/infection: 08/2015 MDRO Source:: BOILS ON SKIN- pt not sure of culture result Past Surgical History: Appendectomy, Section, Cholecystectomy, Tonsillectomy, Tubal Ligation, Uterine Ablation Additional Past Surgical History / Comment(s): COLONOSCOPY. LAP JOHN FUNDOPLASTY, thyroidectomy, D&C, LEEP procedure Past Anesthesia/Blood Transfusion Reactions: No Reported Reaction Past Psychological History: No Psychological Hx Reported Smoking Status: Former smoker Past Alcohol Use History: None Reported Past Drug Use History: None Reported - Past Family History Sister(s) Family Medical History: Cancer mother Family Medical History: Thyroid Disorder Medications and Allergies Home Medications Medication Instructions Recorded Confirmed Type Levothyroxine Sodium [Synthroid] 175 mcg PO DAILY 12/29/16 01/01/20 History Bisoprolol [Zebeta] 2.5 mg PO DAILY 01/01/20 01/01/20 History Ergocalciferol [Vitamin D2] 50,000 unit PO SUTH 01/01/20 01/01/20 History Gabapentin 600 mg PO HS 01/01/20 01/01/20 History Sertraline HCl [Zoloft] 200 mg PO DAILY 01/01/20 01/01/20 History Allergies Allergy/AdvReac Type Severity Reaction Status Date / Time hydrocodone bitartrate Allergy Anaphylaxis-stopped Verified 01/01/20 09:36 [From Vicodin] breathing nickel Allergy Unknown Verified 01/01/20 09:56 NSAIDS (Non-Steroidal AdvReac Unknown Verified 01/01/20 10:04 Anti-Inflamma metal Allergy Unknown Uncoded 01/01/20 09:56 Exam Osteopathic Statement: *. No significant issues noted on an osteopathic structural exam other than those noted in the History and Physical/Consult. HEENT: Within normal limits Heart: Regular rate and rhythm Lungs: Clear to auscultation bilaterally Abdomen: Generalized tenderness mostly in the upper abdomen Pelvic exam: Uterus is anteverted, nontender, with no adnexal masses or tenderness palpated Extremities: Negative Homans Assessment and Plan (1) Dysfunctional uterine bleeding Status: Acute Code(s): N93.8 - OTHER SPECIFIED ABNORMAL UTERINE AND VAGINAL BLEEDING SNOMED Code(s): 11163604822081 (2) Pelvic pain Status: Acute Code(s): R10.2 - PELVIC AND PERINEAL PAIN SNOMED Code(s): 70142747 Plan: Proceed with total abdominal hysterectomy with bilateral salpingectomy, possible oophorectomy. I have discussed the risks, benefits, and alternative therapies for the above- mentioned procedure and for both sedation/anesthesia as well as necessary blood products administration, if indicated, as they pertain to this patient. The patient has indicated her understanding and acceptance of the risks and procedures discussed.
[~2020-01-06 06:00] MED LIST: DEXAMETHASONE SOD PHOSPHATE 10 MG/ML 1 ML VIAL IV ONE; LACTATED RINGERS 1,000 ML IV SCH; LIDOCAINE 1% (10MG/ML) FOR IV START INTRADERMA PRN; MIDAZOLAM 2 MG/2 ML VIAL IV PRN; ONDANSETRON 4 MG/2 ML VIAL IVP ONE; SCOPOLAMINE 1.5MG/72HR PATCH TRANSDERM ONE
[2020-01-06] MEDS ORDERED: fentaNYL (PF) 50 MCG/ML 2 ML AMP IV ONE (07:00)
[2020-01-06] MEDS ORDERED: MIDAZOLAM 2 MG/2 ML VIAL IV ONE (07:00)
[2020-01-06] MEDS ORDERED: MORPHINE SULFATE (PF) 0.3 MG/0.3 ML SYR ONE (07:21)
[2020-01-06] MEDS ORDERED: MIDAZOLAM 2 MG/2 ML VIAL ONE (07:21)
[2020-01-06] MEDS ORDERED: NEOSTIGMINE 1 MG/ML 10 ML VIAL ONE (07:21)
[2020-01-06] MEDS ORDERED: ROCURONIUM BROMIDE 10 MG/ML 5 ML VIAL IV ONE (07:21)
[2020-01-06] MEDS ORDERED: fentaNYL (PF) 50 MCG/ML 2 ML AMP ONE (07:21)
[2020-01-06] MEDS ORDERED: LIDOCAINE 1% INJ 10MG/ML (20 ML MDV) ONE (07:21)
[2020-01-06] MEDS ORDERED: PROPOFOL 10 MG/ML 20 ML VIAL IV ONE (07:21)
[2020-01-06] MEDS ORDERED: GLYCOPYRROLATE 0.2 MG/ML 2 ML VIAL ONE (07:21)
[2020-01-06] MEDS ORDERED: KETOROLAC 30 MG/ML 1 ML VIAL ONE (07:21)
[2020-01-06] MEDS ORDERED: SUCCINYLCHOLINE CHLORIDE 100 MG/5 ML SYR IV ONE (07:21)
[2020-01-06] MEDS ORDERED: LACTATED RINGERS 1,000 ML IV ONE (08:34)
--- NOTE | 2020-01-06 08:56 | P.OP ---
Date of Procedure: 01/06/20 Preoperative Diagnosis: Dysfunctional uterine bleeding Pelvic pain Postoperative Diagnosis: Same Procedure(s) Performed: Total abdominal hysterectomy with bilateral's appendectomy Anesthesia: GETA, spinal (Duramorph) Surgeon: Beverly Bhardwaj Student Support Advisor #1: Jack Orantes Estimated Blood Loss (ml): 75 Pathology: other (Uterus with cervix and bilateral tubes) Condition: stable Disposition: floor Indications for Procedure: This is a 34-year-old female 4 para 3 who presents for total abdominal hysterectomy due to dysfunctional uterine bleeding and pelvic pain. She had an endometrial ablation in 2012 but has been spotting almost constantly over the last 4 months. She initially thought it was due to her thyroid levels, however her thyroid levels have been normal and she still continues to have spotting. Sometimes the bleeding is heavy with clots and is always associated with cramping. She also all was has pelvic pain. Her pelvic ultrasound was essentially normal. She would like definitive surgical treatment to control her bleeding and pelvic pain. She would like to preserve her ovaries if at all possible. Operative Findings: Small uterus and ovaries are noted. There are some small simple cysts on the left ovary. Tubes appeared normal. Description of Procedure: The patient is taken to the operating room where she is placed in the dorsal supine position. She is prepped and draped in the normal sterile fashion including Hickey catheter insertion and vaginal prep. A Pfannenstiel skin incision is made through the previous laparotomy scar with a scalpel. A second knife was used to carry the incision down to the underlying layer of fascia. The fascia was nicked in the midline with a scalpel and then extended laterally bilaterally with Christianson scissors. The superior aspect of the fascial incision was grasped with Capri clamps, elevated off the underlying rectus muscle in the midline and then cut with Christianson scissors. The inferior aspect of the fascial incision was grasped with Capri clamps, elevated off the underlying rectus muscle in the midline and then cut with Christianson scissors. Next the peritoneum was identified and entered sharply with Christianson scissors. It is extended superiorly and in fairly with Metzenbaum scissors with good visualization of underlying structures. Next the Gregor retractor is placed in the bladder blade was inserted. The bowels were packed with a 3 yard laparotomy sponge. Next the uterus is brought up incision and the corneal regions are grasped with Joya clamps on both sides. The distal end of the right fallopian tube is clamped a long the mesosalpinx with a Mikaela clamp, cut with Christianson scissors, and then sutured with 0 Vicryl suture in Mikaela transfixion stitch. The piece of tube is removed from the field and sent with the pathology. The same procedure is carried out on the left distal fallopian tube. Next the uterine ovarian ligament is clamped with a Mikaela clamp, cut with Christianson scissors, and then sutured with 0 Vicryl suture in Mikaela transfixion stitch. The same procedure is carried out on the right side. The uterine arteries are then clamped with Mikaela clamp on either side. The vesicouterine peritoneum was sharply dissected away from the bladder with Metzenbaum scissors and pushed inferiorly. The uterine arteries are then cut with Christianson scissors, and sutured with 0 Vicryl suture in Mikaela transfixion stitches. Next the cardinal ligaments were clamped on either side with Mikaela clamp, cut with Christianson scissors, and sutured with 0 Vicryl suture in Mikaela transfixion stitches. The uterosacral ligaments are clamped on either side with Mikaela clamps, cut with Christianson scissors, and sutured with 0 Vicryl suture in Mikaela transfixion stitches on either side. The edges of the vaginal cuff were clamped on either side with a Mikaela clamp, cut with Christianson scissors, and sutured with 0 Vicryl suture in Mikaela transfixion stitches and held on either side. The vaginal mucosa was then cut just below the level of the cervix and the specimen is removed from the field. The edges of the vaginal cuff were held with Capri clamps. Next the previously held corners of each side of the vaginal cuff were then whipstitched along the connective tissue on either side and brought through the corner of the cuff and tied. Next the vaginal cuff was sutured with 0 Vicryl suture in a running locked fashion. Good hemostasis was noted. Copious irrigation is carried out with warm saline. Excellent hemostasis is noted. All sponges are removed from the abdomen. The peritoneum is then closed with 0 Vicryl suture in a running fashion. The muscle layer is hemostatic. The fascia layer is then closed with 0 PDS suture in a running fashion with the knots buried on either side and in the midline. Next the subcutaneous tissues closed with 2-0 Vicryl suture in a running fashion. The skin is closed with damaris. All sponge and needle counts are correct and the patient is taken to recovery room in stable condition.
[2020-01-06] MEDS ORDERED: NALOXONE 0.4 MG/ML 1 ML VIAL IV PRN (09:40)
[2020-01-06] MEDS ORDERED: NALBUPHINE 10 MG/ML (1 ML AMP) IV PRN (09:40)
[2020-01-06] MEDS ORDERED: ONDANSETRON 4 MG/2 ML VIAL IVP PRN ×2 (09:40→10:17)
[2020-01-06] MEDS ORDERED: diphenhydrAMINE 50 MG/ML 1 ML VIAL IVP PRN ×2 (09:40→10:17)
[2020-01-06] MEDS ORDERED: KETOROLAC 30 MG/ML 1 ML VIAL IVP ONE (09:42)
[2020-01-06] MEDS: HYDROmorphone 0.5 MG/0.5 ML SYRINGE IVP PRN ×6 (09:42→20:23)
[2020-01-06] MEDS ORDERED: traMADol 50 MG TAB PO PRN (10:17)
[2020-01-06] MEDS ORDERED: SIMETHICONE 80 MG CHEWABLE PO PRN (10:17)
[2020-01-06] MEDS ORDERED: Acetaminophen-Codeine 300-30mg TAB PO PRN (10:17)
[2020-01-06] MEDS ORDERED: METOCLOPRAMIDE 5 MG/ML 2 ML VIAL IVP PRN (10:17)
[2020-01-06] MEDS ORDERED: ZOLPIDEM 5 MG TAB PO PRN (10:17)
[2020-01-06] MEDS: BISOPROLOL 5 MG TAB PO SCH (12:45)
[2020-01-06] MEDS: LEVOTHYROXINE 88 MCG TAB PO SCH (12:45)
[2020-01-06] MEDS: SENNOSIDES-DOCUSATE SODIUM 1 EACH TAB PO SCH ×2 (12:46→20:24)
[2020-01-06] MEDS: SERTRALINE 100 MG TAB PO SCH (12:46)
[2020-01-06] MEDS: KETOROLAC 30 MG/ML 1 ML VIAL IVP PRN (16:41)
[2020-01-06] MEDS: LACTATED RINGERS 1,000 ML IV SCH ×2 (20:22)
[2020-01-06] MEDS: GABAPENTIN 300 MG CAP PO SCH (20:35)
[2020-01-07] MEDS: KETOROLAC 30 MG/ML 1 ML VIAL IVP PRN ×4 (01:01→19:43)
[2020-01-07] MEDS: LACTATED RINGERS 1,000 ML IV SCH ×2 (01:18→20:52)
[2020-01-07] MEDS: HYDROmorphone 0.5 MG/0.5 ML SYRINGE IVP PRN (06:17)
[2020-01-07] MEDS: LEVOTHYROXINE 88 MCG TAB PO SCH (06:18)
[2020-01-07 07:47] LABS: Basophils # (A) 0.1 k/uL (0-0.2); Basophils % (A) 1 %; Eosinophils # (A) 0.3 k/uL (0-0.7); Eosinophils % (A) 3 %; HGB 13.1 gm/dL (11.4-16.0); Lymphocytes % (A) 20 %; MCHC 31.8 g/dL (31.0-37.0); MCV 100.4 fL (80.0-100.0); Mean Platelet Volume 8.2; Monocytes # (A) 0.6 k/uL (0-1.0); Monocytes % (A) 6 %; Neutrophils # (A) 7.1 k/uL (1.3-7.7); Neutrophils % (A) 70 %; Platelet Count 219 k/uL (150-450); RBC 4.08 m/uL (3.80-5.40); RDW 11.7 % (11.5-15.5); WBC 10.1 k/uL (3.8-10.6)
--- NOTE | 2020-01-07 08:43 | P.PN ---
Subjective Progress Note Date: 01/07/20 Principal diagnosis: Status post total abdominal hysterectomy with bilateral salpingectomy postoperative day #1 Patient is doing okay today. She did have some initial postoperative pain that has gone down. She is ambulating. She has urinated. Pain is fairly well controlled at this time. She is passing some flatus but no bowel movement yet. Objective - Vital Signs Vital signs: Vital Signs Temp 98.7 F 01/07/20 08:36 Pulse 79 01/07/20 08:36 Resp 16 01/07/20 08:36 BP 138/68 01/07/20 08:36 Pulse Ox 99 01/07/20 08:36 Intake & Output 01/06/20 01/07/20 01/07/20 18:59 06:59 18:59 Intake Total 1500 Output Total 675 1300 Balance 825 -1300 Weight 95 kg Intake: IV 1250 Oral 250 Output: Urine 600 1300 Estimated Blood Loss 75 - Constitutional General appearance: Present: no acute distress - Gastrointestinal Gastrointestinal Comment(s): Incision is intact with damaris in place. There is some ecchymosis more along the left side of the incision and above the incision. There was some dried serosanguineous discharge on the bandage however no active bleeding is noted. General gastrointestinal: Present: normal bowel sounds - Musculoskeletal Musculoskeletal Comment(s): Negative Homans bilaterally - Labs CBC & Chem 7: 01/07/20 06:39 Labs: Abnormal Lab Results - Last 24 Hours (Table) 01/07/20 Range/Units 06:39 MCV 100.4 H (80.0-100.0) fL Assessment and Plan Assessment: Status post HOWIE with bilateral salpingectomy postoperative day #1 (1) Dysfunctional uterine bleeding Current Visit: No Status: Acute Code(s): N93.8 - OTHER SPECIFIED ABNORMAL UTERINE AND VAGINAL BLEEDING SNOMED Code(s): 62373078139395 (2) Pelvic pain Current Visit: No Status: Acute Code(s): R10.2 - PELVIC AND PERINEAL PAIN SNOMED Code(s): 43772693 Plan: Continue with care. May shower. Will work on pain control today. May advance diet as tolerated.
[2020-01-07] MEDS: BISOPROLOL 5 MG TAB PO SCH (09:07)
[2020-01-07] MEDS: SERTRALINE 100 MG TAB PO SCH (09:08)
[2020-01-07] MEDS: SENNOSIDES-DOCUSATE SODIUM 1 EACH TAB PO SCH ×2 (09:08→20:54)
--- NOTE | 2020-01-07 11:03 | P.PN ---
Progress Note - Text Progress Note Date: 01/07/20 Postoperative day 1 status post total abdominal hysterectomy, under general end otracheal anesthesia, and intrathecal morphine given for postoperative analgesia, patient doing well, there is no anesthesia related complications, Patient had no headache, vital signs stable , Assessment and plan= postop day 1 ,, doing well there is no anesthesia related complication. note=patient was seen at 7:30 AM 01/07/2020
[2020-01-07] MEDS: Acetaminophen-Codeine 300-30mg TAB PO PRN (11:38)
[2020-01-07] MEDS: GABAPENTIN 300 MG CAP PO SCH (19:42)
[2020-01-08] MEDS: Acetaminophen-Codeine 300-30mg TAB PO PRN ×2 (01:41→09:39)
[2020-01-08] MEDS: LEVOTHYROXINE 88 MCG TAB PO SCH (05:52)
[2020-01-08 08:10] VITALS: BP 111/70; PULSE 69; RESP 18; TEMP 98.1
--- NOTE | 2020-01-08 08:28 | P.DS ---
Providers Date of admission: 01/06/20 06:00 Expected date of discharge: 01/08/20 Attending physician: Beverly Bhardwaj Primary care physician: Physician Nonstaff - Discharge Diagnosis(es) (1) Dysfunctional uterine bleeding Current Visit: No Status: Acute (2) Pelvic pain Current Visit: No Status: Acute Hospital Course: This is a 34 year old female who underwent a total abdominal hysterectomy with bilateral salpingectomy on 01/06/2020. Postoperatively she has done well. She did have a Duramorph spinal and was receiving Toradol. She has also been taking some oral Tylenol with codeine and more recently tramadol. She thinks the codeine is affecting her stomach and would like to switch to tramadol. She has been passing flatus and loose stools. Pain is been fairly well-controlled. Bleeding has been very minimal. Vital signs are stable. Abdomen is soft with positive bowel sounds 4. There is still some ecchymosis above the incision more towards the left side. Incision is clean dry and intact. Extremities show negative Homans. Impression is status post total abdominal hysterectomy with bilateral salpingectomy postoperative day #2. Plan is to discharge home today. She will be given a prescription for tramadol. She was counseled on opioid use and has signed the start opioid talking form. Routine postoperative instructions are given. She is advised follow-up in the office in approximately 1-2 weeks for a postoperative check. She is advised to call the office if she has any further questions or concerns prior to her appointment time. Procedures: Total abdominal hysterectomy with bilateral salpingectomy on 01/06/2020 Patient Condition at Discharge: Stable Plan - Discharge Summary Discharge Rx Participant: Yes New Discharge Prescriptions: New RX: traMADol HCl [Ultram] 50 mg PO QID PRN #28 tab PRN Reason: Moderate Pain Continue RX: Levothyroxine Sodium [Synthroid] 175 mcg PO DAILY RX: Gabapentin 600 mg PO HS RX: Bisoprolol [Zebeta] 2.5 mg PO DAILY RX: Sertraline HCl [Zoloft] 200 mg PO DAILY RX: Ergocalciferol [Vitamin D2 (DRISDOL)] 50,000 unit PO SUTH Discharge Medication List RX: Levothyroxine Sodium [Synthroid] 175 mcg PO DAILY 12/29/16 [History] RX: Bisoprolol [Zebeta] 2.5 mg PO DAILY 01/01/20 [History] RX: Ergocalciferol [Vitamin D2 (DRISDOL)] 50,000 unit PO SUTH 01/01/20 [History] RX: Gabapentin 600 mg PO HS 01/01/20 [History] RX: Sertraline HCl [Zoloft] 200 mg PO DAILY 01/01/20 [History] RX: traMADol HCl [Ultram] 50 mg PO QID PRN #28 tab 01/08/20 [Rx] Follow up Appointment(s)/Referral(s): Beverly Bhardwaj DO [Doctor of Osteopathic Medicine] - 1 Week Activity/Diet/Wound Care/Special Instructions: Diet as tolerated. Activity as tolerated. No heavy lifting, bending, stooping, or pulling. May shower, but no tub baths. No intercourse. No driving while on narcotic pain medication. Discharge Disposition: HOME SELF-CARE
[2020-01-08] MEDS: BISOPROLOL 5 MG TAB PO SCH (09:39)
[2020-01-08] MEDS: SERTRALINE 100 MG TAB PO SCH (09:40)
== END 2020-01-08 10:05 | disposition home or self-care (01) | DRG 743 ==
LOC: 2ORMAIN 06:00 → 4FBP 09:06
PROVIDERS: ADMIT Obstetrics & Gynecology; ATTEND Obstetrics & Gynecology
PROC: 0UT70ZZ Resection of Bilateral Fallopian Tubes, Open Approach (ICD-10-PCS; 2020-01-06)
PROC: 0UTC0ZZ Resection of Cervix, Open Approach (ICD-10-PCS; 2020-01-06)
PROC: 0UT90ZZ Resection of Uterus, Open Approach (ICD-10-PCS; principal; 2020-01-06 07:30)
DX: N93.8 Other specified abnormal uterine and vaginal bleeding (principal); K91.1 Postgastric surgery syndromes; E89.0 Postprocedural hypothyroidism; R10.2 Pelvic and perineal pain; G43.909 Migraine, unspecified, not intractable, without status migrainosus; G25.81 Restless legs syndrome; J45.909 Unspecified asthma, uncomplicated; K21.9 Gastro-esophageal reflux disease without esophagitis; M41.9 Scoliosis, unspecified; M19.90 Unspecified osteoarthritis, unspecified site; Z79.890 Hormone replacement therapy; Z79.899 Other long term (current) drug therapy; Z87.891 Personal history of nicotine dependence; Z85.850 Personal history of malignant neoplasm of thyroid; Z87.19 Personal history of other diseases of the digestive system; Z87.01 Personal history of pneumonia (recurrent); Z98.891 History of uterine scar from previous surgery; Z98.51 Tubal ligation status; Z86.14 Personal history of Methicillin resistant Staphylococcus aureus infection; Z90.49 Acquired absence of other specified parts of digestive tract; Z88.6 Allergy status to analgesic agent; Z88.5 Allergy status to narcotic agent; Z91.048 Other nonmedicinal substance allergy status; Z83.49 Family history of other endocrine, nutritional and metabolic diseases; Z80.9 Family history of malignant neoplasm, unspecified
CPT/HCPCS: 85025; 86850; 86900; 86901; 88307